=== PATIENT | male | born 1960 | race Two or more races ===

== ENCOUNTER 2025-02-17 05:44 | Inpatient (IN) | payer OTHER ==
[2025-02-17] VITALS (13 sets, daily range): BP systolic 116–155; BP diastolic 70–89; PULSE 67–83; RESP 12–19; TEMP 97.9–98.3; O2SAT 90–96
[~2025-02-17] VITALS: Ht 180.3 cm; Wt 116.7 kg
--- NOTE | 2025-02-17 05:59 | ECG ---
[facility] Test Date: 2025-02-17 Test Time: 05:53:10 Pat Name: MASON POPE Department: ED Room: 0218T Gender: M Intermediate Designer: DENZEL : 1960 Requested By: EMERGENCY EMERGENCY Order Number: [id number] Reading MD: Harsh Dean Measurements Intervals Anna Rate: 72 P: 26 MS: 170 QRS: 31 QRSD: 123 T: -88 QT: 403 QTc: 442 Interpretive Statements Sinus rhythm Nonspecific intraventricular conduction delay Inferior infarct, age indeterminate Lateral leads are also involved Electronically Signed On 02-17-2025 23:01:26 PDT by Harsh Dean Please click the below link to view image of tracing.
--- NOTE | 2025-02-17 07:00 | ED.PDOC ---
SOB-HPI HPI Comments 64 y/o M, with PMHx of CHF, HTN, and HLD presents to the ED for CC of shortness of breath. Patient states, he has been experiencing symptoms of shortness of breath with an associated nonproductive cough onset, x1 week ago. Patient relays, further symptoms of bilateral leg swelling. Patient endorses, shortness of breath to worsen with light exertion such as walking. Patient's son reports, he spoke to PCP ( ) and was relayed to the ED for admission and further evaluation. Patient denies fever, chills, nasal congestion, sore-throat, palpitations, or chest pain. No other symptoms or modifying factors are present at this time. Chief Complaint: Shortness of Breath Time Seen by MD: 06:25 Reviewed notes: Nurses Notes, Medications, Allergies Information Source: Patient, Relative (Child) Mode of Arrival: Ambulatory Severity: Moderate Timing: Weeks Duration: Since onset Context: With Light Exertion PE Risk Factors: None History of: CHF Prehospital treatment: None Modifying Factors: Nothing Associated Signs and Symptoms: Cough, Leg Swelling If cough with SOB: Non-Productive (k) Past Medical History PAST MEDICAL HISTORY: CHF, High Lipids, HTN Surgical History: Denies all surgeries Family History Family History: Unknown Social History Smoker: Other (vape) Alcohol: Denies ETOH Use Drugs: Denies Drug Use Lives In: Home Constitutional: denies: chills, diaphoresis, fatigue, fever, malaise, sweats, weakness, others EENTM: denies: blurred vision, double vision, ear bleeding, ear discharge, ear drainage, ear pain, ear ringing, eye pain, eye redness, hearing loss, mouth pain, mouth swelling, nasal discharge, nose bleeding, nose congestion, nose pain, photophobia, tearing, throat pain, throat swelling, voice changes, others Respiratory: reports: cough, shortness of breath; denies: hemoptysis, orthopnea, SOB at rest, SOB with excertion, stridor, wheezing, others Cardiovascular: denies: chest pain, dizzy spells, diaphoresis, Dyspnea on exertion, edema, irregular heart beat, left arm pain, lightheadedness, palpitations, PND, syncope, others Gastrointestinal: denies: abdomen distended, abdominal pain, blood streaked bowels, constipated, diarrhea, dysphagia, difficulty swallowing, hematemesis, melena, nausea, poor appetite, poor fluid intake, rectal bleeding, rectal pain, vomiting, others Genitourinary: denies: burning, dysuria, flank pain, frequency, hematuria, incontinence, penile discharge, penile sore, pain, testicle pain, testicle swelling, urgency, others Neurological: denies: dizziness, fainting, headache, left sided numbness, left sided weakness, numbness, paresthesia, pre-existing deficit, right sided numbness, right sided weakness, seizure, speech problems, tingling, tremors, weakness, others Musculoskeletal: reports: others (bilateral leg swelling); denies: back pain, gout, joint pain, joint swelling, muscle pain, muscle stiffness, neck pain Integumetry: denies: bruises, change in color, change in hair/nails, dryness, laceration, lesions, lumps, rash, wounds, others Allergic/Immunocompromised: denies: Difficulty Healing, Frequent Infections, Hives, Itching, others Hematologic/Lymphatic: denies: anemia, blood clots, easy bleeding, easy bruising, swollen glands, others Endocrine: denies: excessive hunger, excessive sweating, excessive thirst, excessive urination, flushing, intolerance to cold, intolerance to heat, unexplained weight gain, unexplained weight loss, others Psychiatric: denies: anxiety, bipolar disorder, depression, hopeless, panic disorder, schizophrenia, sleepless, suicidal, others All Other Systems: Reviewed and Negative Physical Exam General Appearance: Moderate Distress, Obese HEENT: Normal ENT Inspection, Pharynx Normal, TMs Normal Neck: Full Range of Motion, Non-Tender, Normal, Normal Inspection Respiratory: Other (Coarse breath sounds) Cardiovascular: No Edema, No JVD, No Murmur, No Gallop, Normal Peripheral Pulses, Regular Rate/Rhythm Breast Exam: Deferred Gastrointestinal: No Organomegaly, Non Tender, No Pulsatile Mass, Normal Bowel Sounds, Soft Genitalia: Deferred Pelvic: Deferred Rectal: Deferred Extremities: Swelling (Left lower extremity) Musculoskeletal : Apperance: Normal Neurologic: Alert, special agent in charge II-XII nml as Tested, No Motor Deficits, Normal Affect, Normal Mood, No Sensory Deficits Cerebellar Function: Normal Reflexes: Normal Skin: Dry, Normal Color, Warm Peripheral Pulses: 3+ Radial (R), 3+ Radial (L) Lymphatic: No Adenopathy Was a procedure done? Was a procedure done?: No Differential Dx Differential Diagnosis: Anxiety, Asthma, Bronchitis, CHF, COPD, Pneumonia, Pulmonary Embolism X-Ray, Labs, Meds, VS Vital Signs Date Time Temp Pulse Resp B/P (MAP) Pulse Ox O2 Delivery O2 Flow Rate FiO2 02/17/25 05:53 72 02/17/25 05:46 98.4 76 20 151/57 94 98.4 Lab Test 02/17/25 07:09 Range/Units White Blood Count 11.2 H 4.4-10.8 10^3/uL Red Blood Count 5.07 4.5-5.90 10^6/uL Hemoglobin 14.9 13.5-17.5 g/dL Hematocrit 44.3 41.0-53.0 % Mean Corpuscular Volume 87.5 80.0-100.0 fL Mean Corpuscular Hemoglobin 29.4 28.0-32.0 pg Mean Corpuscular Hemoglobin Concent 33.6 32.0-36.0 g/dL Red Cell Distribution Width 14.8 H 11.8-14.3 % Platelet Count 233 140-450 10^3/uL Mean Platelet Volume 8.5 6.9-10.8 fL Neutrophils (%) (Auto) 63.5 37.0-80.0 % Lymphocytes (%) (Auto) 23.8 10.0-50.0 % Monocytes (%) (Auto) 9.3 0.0-12.0 % Eosinophils (%) (Auto) 2.9 0.0-7.0 % Basophils (%) (Auto) 0.5 0.0-2.0 % Neutrophils # (Auto) 7.1 1.6-8.6 10 ^3/uL Lymphocytes # (Auto) 2.7 0.4-5.4 10 ^3/uL Monocytes # (Auto) 1.0 0-1.3 10 ^3/uL Eosinophils # (Auto) 0.3 0-0.8 10 ^3/uL Basophils # (Auto) 0.1 0-0.2 10 ^3/uL Nucleated Red Blood Cells 0.0 % D-Dimer, Quantitative Pending Sodium Level Pending Potassium Level Pending Chloride Level Pending Carbon Dioxide Level Pending Anion Gap Pending Blood Urea Nitrogen Pending Creatinine Pending Glomerular Filtration Rate Calc Pending BUN/Creatinine Ratio Pending Serum Glucose Pending Calcium Level Pending Total Bilirubin Pending Aspartate Amino Transferase (AST) Pending Alanine Aminotransferase (ALT) Pending Alkaline Phosphatase Pending Troponin I High Sensitivity Pending B-Type Natriuretic Peptide Pending Total Protein Pending Albumin Pending Patient alert pain Complaining of cough shortness a breath. Blood pressure slightly elevated pain Heart rate within normal limits pain On examination he does have coarse breath sounds along with the swelling of the left lower extremity. Possible CHF. Possible pneumonitis. Was given steroid. Was given Lasix. Explained to the family that he will possibly need echocardiogram. Cardiology consultation. Continue monitoring. [place] [address] Ph: [phone] DIAGNOSTIC IMAGING Diagnostic Imaging Report : [id number] Signed PATIENT: ROSEY POPET: [id number] UNIT: [id number] : 1960 LOC: ER ROOM / BED: / AGE / SEX: 64 / M ADM STATUS: REG ER SERVICE 8 ORDERING PHYSICIAN: GILBERT MATA MD PROCEDURE(s): CXRP - CHEST PORTABLE REASON: sob ORDER NUMBER(s): [id number], ACCESSION NUMBER(s): [id number] CHEST RADIOGRAPH Indication: sob Technique: Single frontal view of the chest was obtained COMPARISON: None FINDINGS: Lines and Tubes: None Lungs: Clear Pleura: No effusion. No pneumothorax. Cardiomediastinal contours: Unremarkable Bones: Unremarkable IMPRESSION: 1. No acute disease. ATED BY: WILLARD COCHRAN MD DICTATED DATE/TIME: 02/17/25733 SIGNED BY: WILLARD COCHRAN MD SIGNED DATE/TIME: 02/17/25733 CC: [place] [address] Ph: [phone] DIAGNOSTIC IMAGING Diagnostic Imaging Report : [id number] Signed PATIENT: ROSEY POPET: [id number] UNIT: [id number] : 1960 LOC: ER ROOM / BED: / AGE / SEX: 64 / M ADM STATUS: REG ER SERVICE 8 ORDERING PHYSICIAN: GILBERT MATA MD PROCEDURE(s): LLDVT - LT Lower DVT REASON: dvt ORDER NUMBER(s): [id number], ACCESSION NUMBER(s): [id number] Left lower extremity venous duplex Clinical History: dvt Comparison: None Technique: Duplex Doppler evaluation of the deep venous system of the left lower extremity from the common femoral vein to the popliteal vein including color Doppler and spectral/pulsed waveform analysis was performed. Findings: The common femoral vein demonstrates appropriate compressibility and waveform variability. There is compressibility/patency of the great saphenous vein at the proximal thigh. The femoral vein demonstrates appropriate compressibility and waveform variability. The deep femoral vein demonstrates appropriate compressibility and waveform variability. The popliteal vein demonstrates appropriate compressibility and waveform variability. There is normal compressibility at the tibioperoneal trunk. Impression: 1. No left femoropopliteal venous thrombosis. 2. Contralateral common femoral vein is patent. ATED BY: WILLARD COCHRAN MD DICTATED DATE/TIME: 02/17/25718 SIGNED BY: WILLARD COCHRAN MD SIGNED DATE/TIME: 02/17/25718 CC: Time of 1ST Reevaluation: 06:55 Reevaluation 1ST: Unchanged Patient Education/Counseling: Diagnosis, Treatment Family Education/Counseling: No Family Present SEPSIS Sepsis Screen Date sepsis recognized/suspect: Feb 17, 2025 Time Sepsis recognized/suspect: 0549 Recent Procedure: No On Antibiotic Therapy: No Respiratory Rate >20: No Heart Rate >90: No Temp<36 C (96.8 F) or >38.3 C: No SBP <90 or MAP <65 mmHG: No New Acute Mental Status Change: No Is the patient on CPAP, BIPAP,: No Physician Orders Troponin-I Hs (02/17/25 06:39) Comprehensive Metabolic Panel (02/17/25 06:39) B-Type Natriuretic Peptide (02/17/25 06:39) D-Dimer (02/17/25 06:39) Chest Portable (02/17/25 06:39) Urinalysis (02/17/25 06:39) Troponin-I Hs (02/17/25 07:39) Troponin-I Hs (02/17/25 09:39) Lt Lower Dvt (02/17/25 06:39) Vital Signs Date Time Temp Pulse Resp B/P (MAP) Pulse Ox O2 Delivery O2 Flow Rate FiO2 02/17/25 05:53 72 02/17/25 05:46 98.4 76 20 151/57 94 98.4 Laboratory Tests Test 02/17/25 07:09 White Blood Count 11.2 10^3/uL (4.4-10.8) H Departure 1 Departure Time of Disposition: 07:13 Impression: Primary Impression: CHF (congestive heart failure) Qualified Codes: I50.43 - Acute on chronic combined systolic (congestive) and diastolic (congestive) heart failure Disposition: ADMITTED INPATIENT Admit to: Med Surg Condition: Guarded Critical Care Note Critical Care Time?: No Stability Stability form required: No Heart Score Heart Score: Heart Score Response (Comments) Value History Slightly Suspicious 0 EKG Normal 0 Age >65 2 Risk Factors >3 or Hx ASHD 2 Troponin Normal limit 0 Total 4 I personally scribed for GILBERT MATA MD ([email or web address]) on 02/17/25 at 07:00. Electronically submitted by Charla Simpson ([email or web address]). I personally scribed for GILBERT MATA MD ([email or web address]) on 02/17/25 at 07:03. Electronically submitted by Charla Simpson ([email or web address]). I personally scribed for GILBERT MATA MD ([email or web address]) on 02/17/25 at 07:41. Electronically submitted by Charla Simpson ([email or web address]). I personally scribed for GILBERT MATA MD ([email or web address]) on 02/17/25 at 07:41. Electronically submitted by Charla Simpson ([email or web address]). GILBERT MATA MD Feb 17, 2025 07:00
--- NOTE | 2025-02-17 07:21 | DVH ---
Left lower extremity venous duplex Clinical History: dvt Comparison: None Technique: Duplex Doppler evaluation of the deep venous system of the left lower extremity from the common femor al vein to the popliteal vein including color Doppler and spectral/pulsed waveform analysis was perfo rmed. Findings: The common femoral vein demonstrates appropriate compressibility and waveform variability. There is compressibility/patency of the great saphenous vein at the proximal thigh. The femoral vein demonstrates appropriate compressibility and waveform variability. The deep femoral vein demonstrates appropriate compressibility and waveform variability. The popliteal vein demonstrates appropriate compressibility and waveform variability. There is normal compressibility at the tibioperoneal trunk. Impression: 1. No left femoropopliteal venous thrombosis. 2. Contralateral common femoral vein is patent.
[2025-02-17 07:28] LABS: Hematocrit 44.3 % (41.0-53.0); Hemoglobin 14.9 g/dL (13.5-17.5); Mean Corpuscular Hemoglobin 29.4 pg (28.0-32.0); Mean Corpuscular Volume 87.5 fL (80.0-100.0); Nucleated Red Blood Cells % 0.0 %
--- NOTE | 2025-02-17 07:36 | DVH ---
CHEST RADIOGRAPH Indication: sob Technique: Single frontal view of the chest was obtained COMPARISON: None FINDINGS: Lines and Tubes: None Lungs: Clear Pleura: No effusion. No pneumothorax. Cardiomediastinal contours: Unremarkable Bones: Unremarkable IMPRESSION: 1. No acute disease.
[2025-02-17 07:49] LABS: Alkaline Phosphatase 81 U/L (46-116); Anion Gap 7 (5-15); BUN/Creatinine Ratio 14.1 (10.0-20.0); Blood Urea Nitrogen 13 mg/dL (9-23); Calcium 9.6 mg/dL (8.7-10.4); Carbon Dioxide 27 mmol/L (20-31); Chloride 104 mmol/L (98-107); Glucose 102 mg/dL (74-106); Sodium 138 mmol/L (136-145); Total Protein 7.2 g/dL (5.7-8.2)
[2025-02-17 07:50] LABS: Albumin 4.7 g/dL (3.2-4.8); Bilirubin, Total 0.9 mg/dL (0.2-1.0)
[2025-02-17 07:52] LABS: Alanine Aminotransferase 58 U/L (7-40); Potassium 3.4 mmol/L (3.5-5.1)
[2025-02-17] MEDS: FUROSEMIDE 40 MG/4 ML VIAL IV ONE (07:58)
[2025-02-17] MEDS: POTASSIUM EFFERVESENT TAB 25 MEQ PO ONE (08:00)
[2025-02-17] MEDS: methylPREDNISolone SOD SUCC 125 MG/2 ML VL IV ONE (08:09)
[2025-02-17] MEDS: ENOXAPARIN SOD 120 MG/0.8 ML SYRINGE SC ONE (08:09)
[2025-02-17 08:50] LABS: INR 1.0 (0.9-1.15); Partial Thromboplastin Time 28.3 SEC (24.5-34.5); Prothrombin Time 10.6 sec (9.3-11.8)
[2025-02-17] MEDS: IODIXANOL 320MG/ML 100ML BTL IV ONE (09:22)
[2025-02-17] MEDS: POTASSIUM CHL 20 Meq TABLET PO ONE ×2 (10:04→18:32)
--- NOTE | 2025-02-17 11:02 | DVHINCON2 ---
Date of service: Feb 17, 2025 History of Present Illness 64 yo M with hx of morbid obesity, HTN , recent admit to [facility] for SOB and found to have LV dysfunction. he wa recommended for LHC at [facility] but sent home as they would take 3 days to do it at non PCI center according to pt. pt presented to ER here for sob and trop is elevated. ecg shows SR, inferior ifnarct. Past Medical History reviewed Allergies: Coded Allergies: NO KNOWN ALLERGIES (Unverified , 02/17/25) Review of Systems 10 pt ros otherwise negative Vital Signs Vital Signs Date Time Temp Pulse Resp B/P (MAP) Pulse Ox O2 Delivery O2 Flow Rate FiO2 02/17/25 08:06 83 19 109/76 (87) 94 02/17/25 08:06 Room Air* 0 21 02/17/25 05:46 98.4 98.4 Physical Exam nad s1 s2 rrr ctab soft nt/nd +3 Left leg edema chronic, +2 rigth leg edema Labs/Diagnostic Data Labs Test 02/17/25 10:12 02/17/25 07:09 Range/Units White Blood Count 11.2 H 4.4-10.8 10^3/uL Red Blood Count 5.07 4.5-5.90 10^6/uL Hemoglobin 14.9 13.5-17.5 g/dL Hematocrit 44.3 41.0-53.0 % Mean Corpuscular Volume 87.5 80.0-100.0 fL Mean Corpuscular Hemoglobin 29.4 28.0-32.0 pg Mean Corpuscular Hemoglobin Concent 33.6 32.0-36.0 g/dL Red Cell Distribution Width 14.8 H 11.8-14.3 % Platelet Count 233 140-450 10^3/uL Mean Platelet Volume 8.5 6.9-10.8 fL Neutrophils (%) (Auto) 63.5 37.0-80.0 % Lymphocytes (%) (Auto) 23.8 10.0-50.0 % Monocytes (%) (Auto) 9.3 0.0-12.0 % Eosinophils (%) (Auto) 2.9 0.0-7.0 % Basophils (%) (Auto) 0.5 0.0-2.0 % Neutrophils # (Auto) 7.1 1.6-8.6 10 ^3/uL Lymphocytes # (Auto) 2.7 0.4-5.4 10 ^3/uL Monocytes # (Auto) 1.0 0-1.3 10 ^3/uL Eosinophils # (Auto) 0.3 0-0.8 10 ^3/uL Basophils # (Auto) 0.1 0-0.2 10 ^3/uL Nucleated Red Blood Cells 0.0 % Prothrombin Time 10.6 9.3-11.8 sec Prothrombin Time INR 1.00 0.9-1.15 Activated Partial Thromboplast Time 28.3 24.5-34.5 SEC D-Dimer, Quantitative 1.28 H 0.0-0.49 mg/L FEU Sodium Level 138 136-145 mmol/L Potassium Level 3.4 L 3.5-5.1 mmol/L Chloride Level 104 98-107 mmol/L Carbon Dioxide Level 27 20-31 mmol/L Anion Gap 7 5-15 Blood Urea Nitrogen 13 9-23 mg/dL Creatinine 0.92 0.700-1.30 mg/dL Glomerular Filtration Rate Calc 92 >90 mL/min BUN/Creatinine Ratio 14.1 10.0-20.0 Serum Glucose 102 74-106 mg/dL Calcium Level 9.6 8.7-10.4 mg/dL Total Bilirubin 0.9 0.2-1.0 mg/dL Aspartate Amino Transferase (AST) 95 H 13-40 U/L Alanine Aminotransferase (ALT) 58 H 7-40 U/L Alkaline Phosphatase 81 46-116 U/L B-Type Natriuretic Peptide 192.43 0-100 pg/mL Total Protein 7.2 5.7-8.2 g/dL Albumin 4.7 3.2-4.8 g/dL Assessment ACS nstemi severe LV dysfunction cad HTN obesity morbid ckd HL leg swelling dvt ruled out Plan/Recommendation lovenox given lvef is sig worse and 35% and WMA recommend C mike pt agrees to plan given ongoing symptoms further recs to follow iv lasix check BNP start GDMT for HF meds Plan discussed with: Patient YOLANDAKATIE MD Feb 17, 2025 11:02
[2025-02-17] MEDS: VERAPAMIL 2.5MG/ML INJ 2ML VIAL IV ONE (11:51)
[2025-02-17] MEDS: fentaNYL CITRATE 100 MCG/2 ML VL ONE (11:51)
[2025-02-17] MEDS: HEPARIN SODIUM (PORCINE) 5000 UNITS/ML 1ML VIAL ONE (11:51)
[2025-02-17] MEDS: MIDAZOLAM HCL 2MG/2ML 2ml VIAL (1mg/ml) ONE (11:52)
[2025-02-17] MEDS: LIDOCAINE 2%HCL (LOCAL ANESTH.) INJ 20ML MDV ONE (11:56)
--- NOTE | 2025-02-17 11:56 | DVHSR ---
APPROVED REPORT EXAM: Two-dimensional and M-mode echocardiogram with Doppler and color Doppler. Blood Pressure: 109/76 mmHg INDICATION Check EF RISK FACTORS Height: 5'11", Weight: 265 DIMENSIONS LVDd6.3 (3.8-5.7cm)LA (2D)5.5 (1.9-4.0cm)Aortic Root3.2 (2.0-3.7cm) LVDs5.7 (2.5-4.0cm)LA (MM) (1.9-4.0cm)Aortic Cusp Exc1.0 (1.5-2.0cm) EF (%) 20.0 (55-70%)Rt. Atrium4.0 (1.9-4.0cm)Asc. Aorta cm IVSd0.9 (0.7-1.1cm)RV (D)3.9 (1.8-2.4cm) Mitral Valve MitralMitral Stenosis E wave1.27m/sMV Mean GR.mmHg A wave1.07m/sMV Peak GR.mmHg E/A ratio1.22D MVAcm2 DECEL [id number] 1/2 Timems Aortic Valve Aortic ValveAortic Stenosis V10.82m/Lety Mean GR.11mmHg V22.20m/Lety Peak GR.19mmHg LVOT Diameter2.2 (1.8-2.4cm)Doppler AVA1.42cm2 Pulmonic Valve V20.96m/s Tricuspid Valve TR Velocity2.58m/s [id number] Other Information Quality : Technically LimitedRhythm : Technically limited study due to body habitus. Conclusion lvef 40% by visual estimate RWMA, infero and inferoseptal wall hypokinesis mild LVH normal RV function aortic sclerosis mild mitral regurg, posteriorly directed left atrium enlarged
[2025-02-17] MEDS: SODIUM CHL 0.9% 0 ML ONE (12:25)
[2025-02-17] MEDS: ANGIOMAX 250 MG VIAL IV ONE (12:25)
--- NOTE | 2025-02-17 12:43 | DVHOP2 ---
Operative Report Operative Report CARDIAC LITIGATION CLAIM REPRESENTATIVE PROCEDURE REPORT [place], [place] Date of Service: 02/17/25 Fur Tanner: Katie Guerrero MD PROCEDURES PERFORMED: Coronary angiogram, conscious sedation administration and supervision, less than 15 minutes; fluoroscopy use and interpretation. sedation 15-30m ins PREOPERATIVE DIAGNOSES: ACS, CHF new onset LV dysfunction, POSTOP DIAGNOSIS: cad 1v DESCRIPTION OF PROCEDURE: The patient or appropriate family signed informed consent understanding the risks, benefits and alternatives of the procedure, they wished to proceed. The patient was brought to the cardiac lab support service tech [place]. The patient was prepped in a sterile fashion. Sedation was used per cardiac cath protocol. I administered 2 mL of 2% lidocaine to the right wrist. With an antegrade front wall puncture. I cannulated the right radial artery and placed a 6-[place] Glidesheath slender. Next, an intra-arterial spasmolytic was administered. Next, a - 5French [place] catheter andpigtail e and were used for coronary angiogram. At the completion of procedure, all guides and wires were removed, and there were no immediate complications. FINDINGS: RCA: Moderate vessel off the right sinus of Valsalva, prox RCA CARE MANAGEMENT COORDINATOR with L to R collaterals grade III LEFT MAIN: large size left main, it bifurcates into LAD and circumflex. patent CIRCUMFLEX: Moderate caliber vessel coming off the left main with no flow limiting stenosis. prox CX gives off OM1 with mild plaque. OM2 has 40% plaque. OM3 has mild plaque. OM4 has 50% stenosis LAD: LAD is a moderate caliber vessel coming of the left main. prox is patent given off several Diagonal arteries of moderately large caliber free of severe disease. mild LAD has focal 40% stenosis CONCLUSIONS: 1. 1v cad with RCA CARE MANAGEMENT COORDINATOR PLAN: Aggressive risk factor modification and medical management for the patient. asa statin ARB/ aldactone BB lasmelo mcpherson on DC KATIE GUERRERO MD Feb 17, 2025 12:42
--- NOTE | 2025-02-17 16:43 | DVHHP2 ---
Review of Systems Allergies: Coded Allergies: NO KNOWN ALLERGIES (Unverified , 02/17/25) Exam Vital Signs Vital Signs Date Time Temp Pulse Resp B/P (MAP) Pulse Ox O2 Delivery O2 Flow Rate FiO2 02/17/25 14:30 98.3 98.3 02/17/25 14:09 70 12 140/86 (104) 90 02/17/25 08:06 Room Air* 0 21 Labs/Xrays Labs Test 02/17/25 10:12 02/17/25 07:09 Range/Units Troponin I High Sensitivity 108 *H </=54 ng/L White Blood Count 11.2 H 4.4-10.8 10^3/uL Red Blood Count 5.07 4.5-5.90 10^6/uL Hemoglobin 14.9 13.5-17.5 g/dL Hematocrit 44.3 41.0-53.0 % Mean Corpuscular Volume 87.5 80.0-100.0 fL Mean Corpuscular Hemoglobin 29.4 28.0-32.0 pg Mean Corpuscular Hemoglobin Concent 33.6 32.0-36.0 g/dL Red Cell Distribution Width 14.8 H 11.8-14.3 % Platelet Count 233 140-450 10^3/uL Mean Platelet Volume 8.5 6.9-10.8 fL Neutrophils (%) (Auto) 63.5 37.0-80.0 % Lymphocytes (%) (Auto) 23.8 10.0-50.0 % Monocytes (%) (Auto) 9.3 0.0-12.0 % Eosinophils (%) (Auto) 2.9 0.0-7.0 % Basophils (%) (Auto) 0.5 0.0-2.0 % Neutrophils # (Auto) 7.1 1.6-8.6 10 ^3/uL Lymphocytes # (Auto) 2.7 0.4-5.4 10 ^3/uL Monocytes # (Auto) 1.0 0-1.3 10 ^3/uL Eosinophils # (Auto) 0.3 0-0.8 10 ^3/uL Basophils # (Auto) 0.1 0-0.2 10 ^3/uL Nucleated Red Blood Cells 0.0 % Prothrombin Time 10.6 9.3-11.8 sec Prothrombin Time INR 1.00 0.9-1.15 Activated Partial Thromboplast Time 28.3 24.5-34.5 SEC D-Dimer, Quantitative 1.28 H 0.0-0.49 mg/L FEU Sodium Level 138 136-145 mmol/L Potassium Level 3.4 L 3.5-5.1 mmol/L Chloride Level 104 98-107 mmol/L Carbon Dioxide Level 27 20-31 mmol/L Anion Gap 7 5-15 Blood Urea Nitrogen 13 9-23 mg/dL Creatinine 0.92 0.700-1.30 mg/dL Glomerular Filtration Rate Calc 92 >90 mL/min BUN/Creatinine Ratio 14.1 10.0-20.0 Serum Glucose 102 74-106 mg/dL Calcium Level 9.6 8.7-10.4 mg/dL Total Bilirubin 0.9 0.2-1.0 mg/dL Aspartate Amino Transferase (AST) 95 H 13-40 U/L Alanine Aminotransferase (ALT) 58 H 7-40 U/L Alkaline Phosphatase 81 46-116 U/L B-Type Natriuretic Peptide 192.43 0-100 pg/mL Total Protein 7.2 5.7-8.2 g/dL Albumin 4.7 3.2-4.8 g/dL SEPSIS Sepsis Screen Date sepsis recognized/suspect: Feb 17, 2025 Time Sepsis recognized/suspect: 0549 Recent Procedure: No On Antibiotic Therapy: No Respiratory Rate >20: No Heart Rate >90: No Temp<36 C (96.8 F) or >38.3 C: No SBP <90 or MAP <65 mmHG: No New Acute Mental Status Change: No Is the patient on CPAP, BIPAP,: No Physician Orders Echo 2d Mode Cardiac Dop (02/17/25 09:04) Communication Order (02/17/25 10:58) Cardiac Diet-2gna,Lofat,Lochol (02/17/25 Lunch) Post Cath Vital Signs Q 15min (02/17/25 ) Post Cath Activity Protocol (02/17/25 12:31) Communication Order (02/17/25 12:32) Admit (02/17/25 16:36) Nitroglycerin Sublingual (Ntrostat Subli (02/17/25 16:45) Morphine Sulfate Injection (02/17/25 16:45) Stat Ekg For Chest Pain (02/17/25 16:36) Notify Md Of Changes From Base (02/17/25 16:36) Neon Sign Servicer For 24 Hours (02/17/25 16:36) Emergency Dysrhythmia Protocol (02/17/25 16:36) Rhythm Strips Once Every Shift (02/17/25 16:36) Oxygen By Nasal Cannula (02/17/25 16:36) Aspirin Tablet (02/18/25 10:00) Atorvastatin (Lipitor) (02/17/25 22:00) Losartan Tablet (Cozaar Tablet) (02/18/25 10:00) Spironolactone (Aldactone) (02/18/25 10:00) Carvedilol Tablet (Coreg Tablet) (02/17/25 22:00) Furosemide Tablet (Lasix Tablet) (02/18/25 10:00) Potassium Er Tablet (Klor-Con Tablet) (02/17/25 16:45) Basic Metabolic Panel (02/18/25 06:00) Complete Blood Count (02/18/25 06:00) Magnesium (02/18/25 05:00) Vital Signs Date Time Temp Pulse Resp B/P (MAP) Pulse Ox O2 Delivery O2 Flow Rate FiO2 02/17/25 14:30 98.3 98.3 02/17/25 14:09 70 12 140/86 (104) 90 02/17/25 13:55 67 12 136/78 (97) 94 02/17/25 13:24 68 12 123/70 (87) 93 02/17/25 13:09 71 14 126/74 (91) 93 02/17/25 12:54 74 14 134/73 (93) 92 02/17/25 12:39 78 18 133/80 (97) 92 Laboratory Tests Test 02/17/25 07:09 White Blood Count 11.2 10^3/uL (4.4-10.8) H Medications Medications Dose Ordered Sig/Suyapa Route Start Time Stop Time Status Last Admin Dose Admin Enoxaparin Sodium 120 mg ONCE ONCE SC 02/17/25 08:00 02/17/25 08:01 DC 02/17/25 08:09 120 MG Fentanyl Citrate 100 mcg STK-MED ONCE .ROUTE 02/17/25 11:51 02/17/25 11:48 DC 02/17/25 11:51 100 MCG Lidocaine HCl 20 ml STK-MED ONCE .ROUTE 8/18/25 11:56 02/17/25 11:53 DC 02/17/25 11:56 20 ML Methylprednisolone Sodium Succinate 125 mg ONCE ONCE IV 02/17/25 06:45 02/17/25 06:46 DC 02/17/25 08:09 125 MG Midazolam HCl 2 mg STK-MED ONCE .ROUTE 02/17/25 11:52 02/17/25 11:50 DC 02/17/25 11:52 2 MG Potassium Chloride 20 meq ONCE ONCE PO 02/17/25 10:00 02/17/25 10:04 DC 02/17/25 10:04 20 MEQ Sodium Chloride 0 ml @ ud STK-MED ONCE .ROUTE 02/17/25 12:25 02/17/25 12:23 DC 02/17/25 12:25 50 MLS/HR Assessment/Plan Assessment/Plan see dictated note Plan discussed with: Patient My Orders Orders - JANNETTE AMES MD Procedure Category Date Status Time Admit ADMIT 02/17/25 Transmitted 16:36 Nitroglycerin [facility] 02/17/25 Logged Sublingual (Ntrostat 16:45 Morphine Sulfate PHA 02/17/25 Logged Injection 16:45 Stat Ekg For Chest [facility] 02/17/25 In Process Pain 16:36 Notify Md Of Changes [facility] 02/17/25 In Process From Base 16:36 Neon Sign Servicer For [facility] 02/17/25 In Process 24 Hours 16:36 Emergency Dysrhythmia [facility] 02/17/25 In Process Protocol 16:36 Rhythm Strips Once [facility] 02/17/25 In Process Every Shift 16:36 Oxygen By Nasal RT 02/17/25 Transmitted Cannula 16:36 Aspirin Tablet PHA 02/18/25 Logged 10:00 Atorvastatin (Lipitor) PHA 02/17/25 Logged 22:00 Losartan Tablet PHA 02/18/25 Logged (Cozaar Tablet) 10:00 Spironolactone PHA 02/18/25 Logged (Aldactone) 10:00 Carvedilol Tablet PHA 02/17/25 Transmitted (Coreg Tablet) 22:00 Furosemide Tablet PHA 02/18/25 Transmitted (Lasix Tablet) 10:00 Potassium Er Tablet PHA 02/17/25 Transmitted (Klor-Con Tablet) 16:45 Basic Metabolic Panel LAB 02/18/25 Verified 06:00 Complete Blood Count LAB 02/18/25 Verified 06:00 Magnesium LAB 02/18/25 Verified 05:00 Date of Service: Feb 17, 2025 Billing Provider: JANNETTE AMES MD Common Visit Codes: [id number] INP/OBS CARE (HIGH) Secondary Visit Codes: [id number] CARE PLAN 30 MINUTES JANNETTE AMES MD Feb 17, 2025 16:43
[2025-02-17] MEDS ORDERED: MORPHINE SULFATE INJ 2 MG/ml SYRG IV PRN (16:45)
[2025-02-17] MEDS ORDERED: NITROGLYCERIN 0.4 MG SL TAB SL PRN (16:45)
--- NOTE | 2025-02-17 16:56 | DVHHP ---
ADMIT DATE: 02/17/2025 HISTORY OF PRESENT ILLNESS: The patient is a 64-year-old gentleman who came with complaints of increasing shortness of breath going on for several days and cough. The patient also noted bilateral lower extremity swelling. No definite chest pain. No nausea or vomiting. No dizziness or syncope. REVIEW OF SYSTEMS: Review of rest of the systems is otherwise currently negative. PAST MEDICAL HISTORY: Significant for hypertension and hyperlipidemia. MEDICATIONS: Unknown at this time. ALLERGIES: No known drug allergies. SOCIAL HISTORY: Quit smoking a year ago. Occasional alcohol intake. FAMILY HISTORY: Negative. PHYSICAL EXAMINATION: GENERAL: The patient is awake and alert. VITAL SIGNS: Temperature of 98.3, pulse 70 per minute, blood pressure 140/86. SHEENT: Unremarkable. NECK: There is no JVD. There is pedal edema of 1+. LUNGS: Diminished bilaterally. CARDIOVASCULAR: S1 and S2 is regular. No murmurs. ABDOMEN: Soft. There is no organomegaly. NEUROLOGIC: Nonfocal. MUSCULOSKELETAL: Normal. ASSESSMENT AND PLAN: * Coronary artery disease, status post coronary angiography with one-vessel coronary artery disease with collaterals. * Acute on chronic systolic/diastolic heart failure for which the patient's medications will be adjusted. * Hypertension. * Obesity. * Hyperlipidemia. * Non-ST elevation myocardial infarction. * Advanced care planning. The patient has a full code-Time spent was 18 minutes. MD DYLON Mercedes/HINA TID: [id number] RECEIPT: [id number] MTDMessi
[2025-02-17] MEDS: ATORVASTATIN 20 MG TAB PO SCH (21:07)
[2025-02-17] MEDS: CARVEDILOL 3.125 MG TAB PO SCH (21:07)
[2025-02-18] VITALS (7 sets, daily range): BP systolic 137–152; BP diastolic 79–94; PULSE 66–78; RESP 17–20; TEMP 97.4–98.1; O2SAT 94–97
[2025-02-18] MEDS: SPIRONOLACTONE 25 MG TAB PO SCH (09:24)
[2025-02-18] MEDS: LOSARTAN POTASSIUM 50 MG TAB PO SCH (09:29)
[2025-02-18] MEDS: FUROSEMIDE 20 MG TAB PO SCH (09:30)
--- NOTE | 2025-02-18 10:03 | DVHPN2 ---
Progress Note Date Seen: Feb 18, 2025 Medical Necessity Reason Pt with a Central, PICC or Fol: No Subjective Patient reports: No new complaints Review of Systems: HEENT:Normal, CVS:Normal, RESPIRATORY:Normal, GI:Normal, :Normal, MSK:Normal, NEURO:Normal Objective vital signs Vital Sign Date Time Temp Pulse Resp B/P (MAP) Pulse Ox O2 Delivery O2 Flow Rate FiO2 02/18/25 09:32 82 175/149 02/18/25 05:00 98.0 18 95 98.0 02/17/25 20:00 Room Air* 0 21 Total Intake and Output 02/17/25 02/17/25 02/18/25 15:00 23:00 07:00 Intake Total 460 ml 850 ml Balance 460 ml 850 ml medications Current Medications Medications Dose Ordered Sig/Suyapa Route Start Time Stop Time Status Last Admin Dose Admin Nitroglycerin 0.4 mg Q5MINP PRN SL 02/17/25 16:45 Morphine Sulfate 2 mg Q30M PRN IV 02/17/25 16:45 Aspirin 81 mg DAILY PO 02/18/25 10:00 02/18/25 09:29 81 MG Atorvastatin Calcium 40 mg HS PO 02/17/25 22:00 02/17/25 21:07 40 MG Losartan Potassium 50 mg DAILY PO 02/18/25 10:00 02/18/25 09:29 50 MG Spironolactone 25 mg DAILY PO 02/18/25 10:00 02/18/25 09:24 25 MG Carvedilol 3.125 mg Q12HR PO 02/17/25 22:00 02/18/25 09:32 3.125 MG Furosemide 20 mg DAILY PO 02/18/25 10:00 02/18/25 09:30 20 MG Examination: GENERAL:Normal, HEENT:Normal, NECK:Normal, LUNGS:Normal, CVS:Normal, ABDOMEN:Normal, MSK:Normal, MSK:Abnormal (edema++), SKIN:Normal, NEURO:Normal, :Normal laboratory and microbiology Laboratory Tests 02/17/25 07:09 Test 02/17/25 07:09 Range/Units Serum Glucose 102 74-106 mg/dL Problem List/Assessment/Plan Problem List/Assessment/Plan * Coronary artery disease, status post coronary angiography with one-vessel coronary artery disease with collaterals. * Acute on chronic systolic/diastolic heart failure for which the patient's medications will be adjusted, lasix iv * Hypertension ?urgency? emergency: recheck * Obesity. * Hyperlipidemia. * Non-ST elevation myocardial infarction. * Advanced care planning. The patient has a full code- -Time spent was 18 minutes. Plan discussed with: Patient My Orders My Orders Orders - JANNETTE AMES MD Procedure Category Date Status Time Admit ADMIT 02/17/25 Transmitted 16:36 Nitroglycerin PHA 02/17/25 In Process Sublingual (Ntrostat 16:45 Morphine Sulfate PHA 02/17/25 In Process Injection 16:45 Stat Ekg For Chest [facility] 02/17/25 In Process Pain 16:36 Notify Md Of Changes [facility] 02/17/25 In Process From Base 16:36 Travel Pta For [facility] 02/17/25 In Process 24 Hours 16:36 Emergency Dysrhythmia [facility] 02/17/25 In Process Protocol 16:36 Rhythm Strips Once [facility] 02/17/25 In Process Every Shift 16:36 Oxygen By Nasal RT 02/17/25 Transmitted Cannula 16:36 Aspirin Tablet PHA 02/18/25 In Process 10:00 Atorvastatin (Lipitor) PHA 02/17/25 In Process 22:00 Losartan Tablet PHA 02/18/25 In Process (Cozaar Tablet) 10:00 Spironolactone PHA 02/18/25 In Process (Aldactone) 10:00 Carvedilol Tablet PHA 02/17/25 In Process (Coreg Tablet) 22:00 Furosemide Tablet PHA 02/18/25 In Process (Lasix Tablet) 10:00 Basic Metabolic Panel LAB 02/18/25 Logged 06:00 Complete Blood Count LAB 02/18/25 Logged 06:00 Magnesium LAB 02/18/25 Logged 06:00 Furosemide Tablet PHA 02/19/25 Verified (Lasix Tablet) 10:00 Furosemide Injection PHA 02/18/25 Verified (Lasix Injection) 10:00 Basic Metabolic Panel LAB 02/19/25 Verified 06:00 Magnesium LAB 02/19/25 Verified 05:00 Date of Service: Feb 18, 2025 Billing Provider: JANNETTE AMES MD Common Visit Codes: [id number] INP/OBS CARE(HIGH) Secondary Visit Codes: [id number] CARE PLAN 30 MINUTES JANNETTE AMES MD Feb 18, 2025 10:03
[2025-02-18 10:09] LABS: Hematocrit 45.9 % (41.0-53.0); Hemoglobin 15.2 g/dL (13.5-17.5); Mean Corpuscular Hemoglobin 29.0 pg (28.0-32.0); Mean Corpuscular Volume 87.5 fL (80.0-100.0); Nucleated Red Blood Cells % 0.0 %
[2025-02-18 10:22] LABS: Chloride 106 mmol/L (98-107); Potassium 4.7 mmol/L (3.5-5.1); Sodium 142 mmol/L (136-145)
[2025-02-18 10:23] LABS: Anion Gap 8 (5-15); Calcium 10.0 mg/dL (8.7-10.4); Carbon Dioxide 28 mmol/L (20-31)
[2025-02-18 10:28] LABS: BUN/Creatinine Ratio 17.1 (10.0-20.0); Blood Urea Nitrogen 14 mg/dL (9-23); Magnesium 2.4 mg/dL (1.6-2.6)
[2025-02-18 10:29] LABS: Glucose 149 mg/dL (74-106)
[2025-02-18] MEDS: FUROSEMIDE 20 MG/2 ML VIAL IV ONE (10:38)
[2025-02-19 01:00] VITALS: BP 145/84; PULSE 73; RESP 17; TEMP 98.2; O2SAT 96
[2025-02-19 05:00] VITALS: BP 149/92; PULSE 75; RESP 19; TEMP 98.4; O2SAT 94
[2025-02-19 07:16] LABS: Anion Gap 8 (5-15); Carbon Dioxide 29 mmol/L (20-31); Chloride 106 mmol/L (98-107); Potassium 4.4 mmol/L (3.5-5.1); Sodium 143 mmol/L (136-145)
[2025-02-19 07:17] LABS: Calcium 9.5 mg/dL (8.7-10.4)
[2025-02-19 07:22] LABS: BUN/Creatinine Ratio 20.2 (10.0-20.0); Blood Urea Nitrogen 17 mg/dL (9-23); Glucose 87 mg/dL (74-106)
[2025-02-19 08:00] VITALS: PULSE 64; RESP 20; O2SAT 96
[2025-02-19] MEDS: FUROSEMIDE 20 MG TAB PO SCH (09:34)
[2025-02-19] MEDS ORDERED: CARV-214 PO (09:38)
[2025-02-19] MEDS ORDERED: SPIR25TA PO (09:38)
[2025-02-19] MEDS ORDERED: ASPI-498 PO (09:38)
[2025-02-19] MEDS ORDERED: LOSA-535 PO (09:38)
[2025-02-19] MEDS ORDERED: DAPA1TAB4 PO (09:38)
[2025-02-19] MEDS ORDERED: FURO1TAB31 PO (09:38)
--- NOTE | 2025-02-19 09:39 | DVHDS2 ---
Discharge Summary Date of Admission Feb 17, 2025 at 16:36 Date of Discharge: Feb 19, 2025 Labs/Diagnostic Data: Laboratory Results Test 02/19/25 06:32 02/18/25 09:50 02/17/25 10:12 02/17/25 07:09 Sodium Level 143 mmol/L (136-145) Potassium Level 4.4 mmol/L (3.5-5.1) Chloride Level 106 mmol/L (98-107) Carbon Dioxide Level 29 mmol/L (20-31) Anion Gap 8 (5-15) Blood Urea Nitrogen 17 mg/dL (9-23) Creatinine 0.84 mg/dL (0.700-1.30) Glomerular Filtration Rate Calc 97 mL/min (>90) BUN/Creatinine Ratio 20.2 (10.0-20.0) Serum Glucose 87 mg/dL (74-106) Calcium Level 9.5 mg/dL (8.7-10.4) White Blood Count 12.7 10^3/uL (4.4-10.8) Red Blood Count 5.24 10^6/uL (4.5-5.90) Hemoglobin 15.2 g/dL (13.5-17.5) Hematocrit 45.9 % (41.0-53.0) Mean Corpuscular Volume 87.5 fL (80.0-100.0) Mean Corpuscular Hemoglobin 29.0 pg (28.0-32.0) Mean Corpuscular Hemoglobin Concent 33.2 g/dL (32.0-36.0) Red Cell Distribution Width 15.1 % (11.8-14.3) Platelet Count 239 10^3/uL (140-450) Mean Platelet Volume 8.8 fL (6.9-10.8) Neutrophils (%) (Auto) 73.1 % (37.0-80.0) Lymphocytes (%) (Auto) 18.8 % (10.0-50.0) Monocytes (%) (Auto) 7.7 % (0.0-12.0) Eosinophils (%) (Auto) 0.2 % (0.0-7.0) Basophils (%) (Auto) 0.2 % (0.0-2.0) Neutrophils # (Auto) 9.3 10 ^3/uL (1.6-8.6) Lymphocytes # (Auto) 2.4 10 ^3/uL (0.4-5.4) Monocytes # (Auto) 1.0 10 ^3/uL (0-1.3) Eosinophils # (Auto) 0 10 ^3/uL (0-0.8) Basophils # (Auto) 0 10 ^3/uL (0-0.2) Nucleated Red Blood Cells 0.0 % Magnesium Level 2.4 mg/dL (1.6-2.6) Troponin I High Sensitivity 108 ng/L (</=54) Prothrombin Time 10.6 sec (9.3-11.8) Prothrombin Time INR 1.00 (0.9-1.15) Activated Partial Thromboplast Time 28.3 SEC (24.5-34.5) D-Dimer, Quantitative 1.28 mg/L FEU (0.0-0.49) Total Bilirubin 0.9 mg/dL (0.2-1.0) Aspartate Amino Transferase (AST) 95 U/L (13-40) Alanine Aminotransferase (ALT) 58 U/L (7-40) Alkaline Phosphatase 81 U/L (46-116) B-Type Natriuretic Peptide 192.43 pg/mL (0-100) Total Protein 7.2 g/dL (5.7-8.2) Albumin 4.7 g/dL (3.2-4.8) Other Laboratory Tests 02/19/25 06:32 02/18/25 09:50 Brief Hx & Hospital Course: SEE DICTATED NOTE Condition at Discharge: Fair Final Diagnosis/Problems List CAD Discharge Disposition: Home Discharge Instruct/Medications Scheduled Aspirin (Aspirin 81), 81 MG PO DAILY Carvedilol (Coreg), 3.125 MG PO BID Dapagliflozin Propanediol (Farxiga), 10 MG PO DAILY Furosemide (Lasix), 40 MG PO QAM Losartan Potassium (Losartan Potassium), 1 TAB PO DAILY Spironolactone (Aldactone), 25 MG PO QAM Discharge Statement: "Patient was advised to return to the ER or call 911 if any headaches, dizziness, shortness of breath, chest pain, abdominal pain, bleeding, fevers, or worsening of medical condition. Patient was counseled about treatment plan, medications, possible side effects, patientverbalized understanding. All questions were answered to the best of my ability. This discharge took greater then 30 minutes in planning, reviewing documentation, counseling the patient, and discussing with other team members." ASSESSMENT ASSESSMENT Assessment Date of Service: Feb 19, 2025 Billing Provider: JANNETTE AMES MD Common Visit Codes: [id number] DISCH DAY >30min JANNETTE AMES MD Feb 19, 2025 09:39
--- NOTE | 2025-02-19 09:56 | DVHDS ---
DATE OF DISCHARGE: 02/19/2025 HISTORY OF PRESENT ILLNESS: The patient is a 64-year-old gentleman who was admitted with history of shortness of breath and lower extremity swelling and has a history of hypertension and hyperlipidemia. HOSPITAL COURSE: The patient underwent coronary angiography by Dr. More that showed single-vessel coronary artery disease with collaterals. The patient had an echocardiogram done that showed ejection fraction of 40% with left atrial enlargement. The patient had elevated troponin levels. The patient was hypertensive and also in congestive heart failure requiring diuresis. The patient will now be discharged home to resume his home losartan as well as to be on aspirin 81 mg daily, Lipitor 40 mg at bedtime, Coreg 3.125 mg b.i.d., Lasix 40 mg daily, Aldactone 25 mg daily, and Farxiga 10 mg daily. He will follow up with his primary and echo technician. I have given a copy of his echo and angiogram to the patient's son. FINAL DIAGNOSES: Therefore, * Acute myocardial infarction, status post coronary angiography. * [id number] systolic/diastolic heart failure. * Hypertension, questionable emergency, questionable urgency. * Obesity. * Hyperlipidemia. * Transaminitis. * SIRS due to likely acute SD. Time spent in discharge planning and review of plan with the patient and son was 41 minutes. MD DYLON Mercedes/RIKKI TID: [id number] RECEIPT: [id number]
[2025-02-19 10:21] VITALS: BP 151/94; PULSE 69; TEMP 36.9
== END 2025-02-19 11:10 | disposition home or self-care (01) | DRG 280 ==
LOC: ER 05:44 → OVERFLOW 16:36 → TELE-CENTR 16:50
PROVIDERS: ADMIT Internal Medicine; ATTEND Internal Medicine
PROC: B211YZZ Fluoroscopy of Multiple Coronary Arteries using Other Contrast (ICD-10-PCS; principal; 2025-02-17)
DX: I21.B Myocardial infarction with coronary microvascular dysfunction (principal); I50.43 Acute on chronic combined systolic (congestive) and diastolic (congestive) heart failure; I13.0 Hypertensive heart and chronic kidney disease with heart failure and stage 1 through stage 4 chronic kidney disease, or unspecified chronic kidney disease; I16.1 Hypertensive emergency; E66.01 Morbid (severe) obesity due to excess calories; Z68.35 Body mass index [BMI] 35.0-35.9, adult; E78.5 Hyperlipidemia, unspecified; I25.10 Atherosclerotic heart disease of native coronary artery without angina pectoris; N18.9 Chronic kidney disease, unspecified; R74.01 Elevation of levels of liver transaminase levels; F17.290 Nicotine dependence, other tobacco product, uncomplicated; Z79.82 Long term (current) use of aspirin; Z79.899 Other long term (current) drug therapy
CPT/HCPCS: 36415; 71045; 80048; 80053; 83735; 83880; 84484; 85025; 85379; 85610; 85730; 93005; 93306; 93454; 93971; 99152; G0378; J2250; Q9967